=== PATIENT | female | born 1990 | race Caucasian/White ===

== ENCOUNTER 2017-04-01 06:56 | Emergency (ER) | payer MEDICAID ==
[~2017-04-01] VITALS: Ht 170.2 cm; Wt 60.2 kg
[2017-04-01] MEDS ORDERED: SODIUM CHLORIDE 0.9% 1,000ML IVBOLUS ONE (07:30)
[2017-04-01] MEDS ORDERED: ONDANSETRON 2MG/ML, 2ML IVPush ONE (07:30)
[2017-04-01] MEDS ORDERED: MORPHINE SULFATE 4 MG/ML, 1ML ONE ×2 (07:33→09:45)
[2017-04-01] MEDS ORDERED: ONDANSETRON 2MG/ML, 2ML ONE (07:34)
[2017-04-01] MEDS: MORPHINE SULFATE 4 MG/ML, 1ML IVPush PRN ×2 (07:36→09:48)
[2017-04-01 08:08] LABS: ASPARTATE AMINO TRANSFERASE 4 U/L (15-37); BLOOD UREA NITROGEN 13 mg/dL (7-18)
[2017-04-01] MEDS ORDERED: OMNIPAQUE 350 MG/ML, 100ML BOTTLE ONE (09:49)
[2017-04-01 10:53] VITALS: BP 105/56
== END 2017-04-01 10:55 | disposition home or self-care (01) ==
LOC: ED 07:34
DX: R10.32 Left lower quadrant pain (principal); F17.210 Nicotine dependence, cigarettes, uncomplicated
CPT/HCPCS: 36415; 74177; 76830; 80053; 81001; 84703; 85025; 87086; 96361; 96374; 96375; 96376; 99285; J2405; J7030; Q9967